=== PATIENT | male | born 2000 | race Caucasian/White ===

== ENCOUNTER 2019-03-11 15:45 | Emergency (ER) | payer OTHER ==
[~2019-03-11] VITALS: Ht 170.2 cm; Wt 79.0 kg
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
[2019-03-11] MEDS ORDERED: ORPH-16 PO (16:33)
[2019-03-11] MEDS ORDERED: DICL50TA4 PO (16:33)
[2019-03-11 16:55] VITALS: BP 118/62
== END 2019-03-11 16:55 | disposition home or self-care (01) ==
LOC: ER 15:45
DX: S93.402A Sprain of unspecified ligament of left ankle, initial encounter (principal); S16.1XXA Strain of muscle, fascia and tendon at neck level, initial encounter; V49.49XA Driver injured in collision with other motor vehicles in traffic accident, initial encounter; Y93.I9 Activity, other involving external motion; Y92.488 Other paved roadways as the place of occurrence of the external cause; Y99.8 Other external cause status
CPT/HCPCS: 72040; 73610; 99284